=== PATIENT | female | born 2000 | race Caucasian/White ===

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

== ENCOUNTER 2018-02-14 07:20 | Emergency (ER) | payer BC ==
[2018-02-14 07:31] VITALS: BP 125/71
--- NOTE | 2018-02-14 07:51 | ED ---
Throat Pain/Nasal Congestion - HPI Summary HPI Summary: 17yr old female with the complaint of crusty yellow drainage left eye and itching, and some redness. Onset overnight. She does not wear contact lenses. No change in her vision. - History of Current Complaint Chief Complaint: UCEye Time Seen by Provider: 02/14/18 07:35 - Allergies/Home Medications Allergies/Adverse Reactions: Allergies Allergy/AdvReac Type Severity Reaction Status Date / Time No Known Allergies Allergy Verified 05/18/17 17:22 Home Medications: Home Medications Etonogestrel [Nexplanon] 1 each DAILY 02/14/18 [History Confirmed 02/14/18] PMH/Surg Hx/FS Hx/Imm Hx Infectious Disease History: No Infectious Disease History: Denies: Traveled Outside the [place] in Last 30 Days - Family History Known Family History: Positive: Other - THYROID ca - Social History Occupation: Student Alcohol Use: Occasionally Substance Use Type: Reports: None Smoking Status (MU): Never Smoked Tobacco Review of Systems Constitutional: Negative Positive: Drainage, Erythema All Other Systems Reviewed And Are Negative: Yes Physical Exam Triage Information Reviewed: Yes Vital Signs On Initial Exam: Initial Vitals Temp Pulse Resp BP Pulse Ox 97.7 F 98 16 125/71 99 02/14/18 07:28 02/14/18 07:28 02/14/18 07:28 02/14/18 07:28 02/14/18 07:28 Vital Signs Reviewed: Yes Appearance: Positive: Well-Appearing, No Pain Distress Skin: Positive: Warm, Skin Color Reflects Adequate Perfusion Eyes: Positive: EOMI, INDIGO, Conjunctiva Inflammed - bilateral left greater than right., Discharge Respiratory/Lung Sounds: Positive: Clear to Auscultation Cardiovascular: Positive: RRR Musculoskeletal: Positive: Strength/ROM Intact Neurological: Positive: Sensory/Motor Intact, Alert, Oriented to Person Place, Time, CN Intact II-III Psychiatric: Positive: Normal - [place] Coma Scale Best Eye Response: 4 - Spontaneous Best Motor Response: 6 - Obeys Commands Best Verbal Response: 5 - Oriented Coma Scale Total: 15 Diagnostics - Vital Signs Vital Signs Temp Pulse Resp BP Pulse Ox 02/14/18 07:28 97.7 F 98 16 125/71 99 - Laboratory Lab Statement: Any lab studies that have been ordered have been reviewed, and results considered in the medical decision making process. EENT Course/Dx - Course Course Of Treatment: 17 yr old with conjunctivitis. Rx sulfa drops. - Diagnoses Provider Diagnoses: Conjunctivitis Discharge - Sign-Out/Discharge Documenting (check all that apply): Patient Departure All imaging exams completed and their final reports reviewed: No Studies - Discharge Plan Condition: Good Disposition: HOME Prescriptions: Sulfacetamide 10 % OPTH.REAGAN* [Sulamyd 10% Opth*] 1 drop BOTH EYES Q4H #1 btl Patient Education Materials: Conjunctivitis (ED) Referrals: No Primary Care Phys,NOPCP [Primary Care Provider] - [facility] [place]Outside] - 1 Week - Billing Disposition and Condition Condition: GOOD Disposition: Home
== END 2018-02-14 07:48 | disposition home or self-care (01) ==
LOC: UCCORT 07:20
DX: H10.9 Unspecified conjunctivitis (principal)
CPT/HCPCS: 99212; G0463

== ENCOUNTER 2018-06-08 11:37 | Emergency (ER) | payer BC ==
[2018-06-08 12:51] VITALS: BP 119/82
--- NOTE | 2018-06-08 13:35 | UC ---
Back Pain HPI - HPI Summary HPI Summary: Pt c/o continued low back/spinal pain that began the first week of May. Pt denies injury or strain. Pt was seen here on 06/03/18 and given toradol injection, naproxen PO and flexeril at time of discharge. Pt states pain has not improved. Pain worsens with bending forward. - History of Current Complaint Chief Complaint: UCLowerExtremity Stated Complaint: LOWER BACK PAIN RECHECK Time Seen by Provider: 06/08/18 12:52 Hx Obtained From: Patient Hx Last Menstrual Period: 05/23/18 ?: No Onset/Duration: Sudden Onset, Lasting Weeks, Still Present Timing: Constant Severity Initially: Mild Severity Currently: Moderate - with womovement Pain Intensity: 7 Back Pain: Is Discrete @ - low back pain reproducible at L-3-4. Character: Dull, Aching Aggravating Factor(s): Movement, Lifting, Bending Alleviating Factor(s): Rest, Position Associated Signs And Symptoms: Positive: Negative - Risk Factors AAA Risk Factors: Negative TAD Risk Factors: Negative Epidural Abscess Risk Factors: Negative - Allergies/Home Medications Allergies/Adverse Reactions: Allergies Allergy/AdvReac Type Severity Reaction Status Date / Time No Known Allergies Allergy Verified 06/08/18 12:47 PMH/Surg Hx/FS Hx/Imm Hx Previously Healthy: Yes - Surgical History Surgical History: None - Family History Known Family History: Positive: Other - THYROID ca - Social History Occupation: Student Lives: With Family Alcohol Use: None Substance Use Type: None Smoking Status (MU): Never Smoked Tobacco Have You Smoked in the Last Year: No - Immunization History Hx Tetanus, Diphtheria Vaccination: Yes Vaccination Up to Date: Yes Review of Systems All Other Systems Reviewed And Are Negative: Yes Constitutional: Positive: Negative Skin: Positive: Negative Eyes: Positive: Negative ENT: Positive: Negative Respiratory: Positive: Negative Cardiovascular: Positive: Negative Gastrointestinal: Positive: Negative Genitourinary: Positive: Negative Motor: Positive: Negative Neurovascular: Positive: Negative Musculoskeletal: Positive: Arthralgia, Myalgia Neurological: Positive: Negative Psychological: Positive: Negative Is Patient Immunocompromised?: No Physical Exam Triage Information Reviewed: Yes Appearance: Well-Appearing Vital Signs: Initial Vital Signs Temp 97.6 F 06/08/18 12:47 Pulse 90 06/08/18 12:47 Resp 15 06/08/18 12:47 BP 119/82 06/08/18 12:47 Pulse Ox 100 06/08/18 12:47 Vital Signs Reviewed: Yes Eye Exam: Normal ENT Exam: Normal ENT: Positive: Hearing grossly normal Dental Exam: Normal Neck exam: Normal Respiratory Exam: Normal Respiratory: Positive: No respiratory distress Musculoskeletal Exam: Other - low back pain reproducible at L-3-4. Musculoskeletal: Positive: Strength Intact, ROM Intact Neurological Exam: Normal Psychological Exam: Normal Skin Exam: Normal Diagnostics - Radiology No standard instances Radiology Interpretation Completed By: Radiologist - IMPRESSION: UNREMARKABLE RADIOGRAPHS OF THE LUMBAR SPINE Back Pain Course/Dx - Differential Dx/Diagnosis Differential Diagnosis/HQI/PQRI: Herniated Disc, Strain, Sprain Provider Diagnosis: Low back pain Discharge - Sign-Out/Discharge Documenting (check all that apply): Patient Departure All imaging exams completed and their final reports reviewed: Yes - Discharge Plan Condition: Stable Disposition: HOME Prescriptions: predniSONE TAB* [Deltasone 10 MG TAB*] 30 mg PO DAILY #12 tab Patient Education Materials: Back Pain (ED), Lower Back Exercises (ED) Referrals: Gilbert Walker MD [Medical Doctor] - If Needed Deanna Medellin MD [Medical Doctor] - If Needed No Primary Care Phys,NOPCP [Primary Care Provider] - - Billing Disposition and Condition Condition: STABLE Disposition: Home
== END 2018-06-08 13:58 | disposition home or self-care (01) ==
LOC: UCCORT 11:37
DX: M54.5 Low back pain (principal)
CPT/HCPCS: 72110; 99212; G0463

== ENCOUNTER 2019-02-16 11:37 | Emergency (ER) | payer BC ==
[2019-02-16 12:35] VITALS: BP 110/77
--- NOTE | 2019-02-16 13:59 | UC ---
Lower Extremity/Ankle HPI - HPI Summary HPI Summary: 18 yo female with left heel pain x 1 week no injury worse in am starts the day limping but seems to improve - History of Current Complaint Chief Complaint: UCLowerExtremity Stated Complaint: L HEAL COMP Time Seen by Provider: 02/16/19 13:56 Hx Obtained From: Patient Hx Last Menstrual Period: ~02/12/19 Onset/Duration: Gradual Onset, Lasting Days Severity Initially: Mild Severity Currently: Moderate Pain Intensity: 6 Pain Scale Used: 0-10 Numeric Aggravating Factor(s): Standing, Ambulation Alleviating Factor(s): Rest Able to Bear Weight: Yes Feet (Multiple View): 1 - pain and swelling here - Allergies/Home Medications Allergies/Adverse Reactions: Allergies Allergy/AdvReac Type Severity Reaction Status Date / Time No Known Allergies Allergy Verified 02/16/19 12:31 PMH/Surg Hx/FS Hx/Imm Hx Previously Healthy: Yes - Surgical History Surgical History: None - Family History Known Family History: Positive: Other - THYROID ca, Non-Contributory - Social History Alcohol Use: None Substance Use Type: None Smoking Status (MU): Never Smoked Tobacco Have You Smoked in the Last Year: No - Immunization History Hx Tetanus, Diphtheria Vaccination: Yes Vaccination Up to Date: Yes Review of Systems All Other Systems Reviewed And Are Negative: Yes Constitutional: Positive: Negative Skin: Positive: Negative Eyes: Positive: Negative ENT: Positive: Negative Respiratory: Positive: Negative Cardiovascular: Positive: Negative Gastrointestinal: Positive: Negative Genitourinary: Positive: Negative Motor: Positive: Negative Neurovascular: Positive: Negative Musculoskeletal: Positive: Other: - left heel pain Neurological: Positive: Negative Psychological: Positive: Negative Physical Exam Triage Information Reviewed: Yes Appearance: Well-Appearing, No Pain Distress, Well-Nourished Vital Signs: Initial Vital Signs Temp 98.2 F 02/16/19 12:29 Pulse 83 02/16/19 12:29 Resp 16 02/16/19 12:29 BP 110/77 02/16/19 12:29 Pulse Ox 97 02/16/19 12:29 Vital Signs Reviewed: Yes Eyes: Positive: Conjunctiva Clear ENT: Positive: Hearing grossly normal. Negative: Tonsillar swelling, Tonsillar exudate, Trismus, Muffled voice, Hoarse voice Dental Exam: Normal Neck: Positive: Supple, Nontender, No Lymphadenopathy Respiratory: Positive: Lungs clear, Normal breath sounds, No respiratory distress, No accessory muscle use Cardiovascular: Positive: RRR, No Murmur Musculoskeletal: Positive: ROM Intact, No Edema Neurological: Positive: Alert Psychological Exam: Normal Skin Exam: Normal Diagnostics - Radiology No standard instances Radiology Interpretation Completed By: Radiologist Summary of Radiographic Findings: left heel : (no fx or spur) Lower Extremity Course/Dx - Course Course Of Treatment: declines local referral states she will see a provider back home if symptoms persist - Differential Dx/Diagnosis Provider Diagnosis: Left Achilles tendinitis Discharge ED - Sign-Out/Discharge Documenting (check all that apply): Patient Departure All imaging exams completed and their final reports reviewed: Yes - Discharge Plan Condition: Stable Disposition: HOME Patient Education Materials: Achilles Tendinitis (ED) Referrals: No Primary Care Phys,NOPCP [Primary Care Provider] - Additional Instructions: heat aleve 2 twice daily with food for pain activity as tolerated I suggest you see a recreation professor or sportsmedicine specialist if pain lasts more than a week - Billing Disposition and Condition Condition: STABLE Disposition: Home
== END 2019-02-16 14:39 | disposition home or self-care (01) ==
LOC: UCCORT 11:37
DX: M76.62 Achilles tendinitis, left leg (principal)
CPT/HCPCS: 99211; G0463